=== PATIENT | female | born 1935 | race Caucasian/White ===

== ENCOUNTER → 2016-08-11 | Outpatient (CLI) | payer OTHER | LOC: FIMAGING 11:19 | DX: Z12.31 Encounter for screening mammogram for malignant neoplasm of breast (principal) | CPT/HCPCS: G0202 ==

== ENCOUNTER → 2016-11-30 | Outpatient (CLI) | payer OTHER | LOC: FIMAGING 07:59 | PROVIDERS: ATTEND Internal Medicine | DX: K82.4 Cholesterolosis of gallbladder (principal) ==

== ENCOUNTER 2017-03-11 17:17 | Emergency (ER) | payer OTHER ==
--- NOTE | 2017-03-11 17:25 | EDPHY ---
HPI/HX/ROS/PE/MDM Narrative: CHIEF COMPLAINT: Headache, nausea, dizziness HPI: The patient is an 80 y/o female arriving via EMS complaining of headache, nausea, and dizziness. She fell two weeks ago and has been experiencing pain in her wrist since. She has no memory of the fall but remembers waking up on the ground. Today she began experiencing a headache. She took Advil but experienced no relief. She has associated dizziness and nausea. An EKG en route was normal. She denies any other associated symptoms. She does not take anticoagulants. REVIEW OF SYSTEMS: Aside from elements discussed in the HPI, a comprehensive 10-point review of systems was reviewed and is negative. PMH: TIA SOCIAL HISTORY: Lives in [place], retired, daughter lives nearby. PHYSICAL EXAM: General:Patient is alert, in no acute distress. ENT:Eyes are normal to inspection. ENT inspection normal. Neck: Normal inspection. Full range of motion. Respiratory:No respiratory distress. Breath sounds normal bilaterally. Cardiovascular: Regular rate and rhythm. Normal cap refill. Abdomen:The abdomen is nontender to palpation. There are no peritoneal signs. There are normal bowel sounds. Back: Normal to inspection. No tenderness to palpation. Skin: Normal color. No rash. Warm and dry. Extremities: Normal appearance. Full range of motion. Brace on right wrist. Neuro: Oriented x3. Normal motor function. Normal sensory function. ED Course: Study: CT of the head Indication: Recent fall, headache, dizziness Results: CT scan of the head was obtained. The results of the study are: normal The study was read by the radiologist, Dr. Montemayor. I viewed the images myself on the PACS system. Study: X-ray of the wrist Indication: wrist pain Results: X-ray of the wrist was obtained. The results of the study are: ulnar styloid fracture The study was read by the radiologist, Dr. Montemayor. I viewed the images myself on the PACS system. I reassessed the patient and discussed the results of her work-up. I have splinted her wrist and advised her to follow-up with her orthopedist. Return precautions given. MDM: This patient complains of a headache in setting of fall that occurred two weeks ago. Her CTH and CTc-spine are negative for bleed or acute trauma. Her wrist x- ray indicates an ulnar styloid fracture - we have placed her in a velcro splint. The etiology of her headache is unclear, but she appears quite well on exam without any neuro deficits. Together with negative CTH, I think the patient is safe for discharge home and PCP f/u. - Data Points Imaging Results: Imaging Impressions Wrist X-Ray 03/11/17 17:22 Impression: 1. Nondisplaced ulnar styloid fracture. 2. Additional findings as above. Imaging: Discussed imaging studies w/ probation agent Radiologist, I viewed and interpreted images myself Laboratory Results: Laboratory Results 03/11/17 17:17 03/11/17 17:17 03/11/17 03/11/17 17:17 17:17 WBC 7.09 10^3/uL 10^3/uL (3.80-9.50) RBC 4.13 10^6/uL L 10^6/uL (4.18-5.33) Hgb 13.9 g/dL g/dL (12.6-16.3) Hct 39.9 % % (38.0-47.0) MCV 96.6 fL fL (81.5-99.8) MCH 33.7 pg pg (27.9-34.1) MCHC 34.8 g/dL g/dL (32.4-36.7) RDW 13.7 % % (11.5-15.2) Plt Count 313 10^3/uL 10^3/uL (150-400) MPV 10.8 fL fL (8.7-11.7) Neut % (Auto) 72.4 % % (39.3-74.2) Lymph % (Auto) 14.7 % L % (15.0-45.0) [place] % (Auto) 10.3 % % (4.5-13.0) Eos % (Auto) 1.3 % % (0.6-7.6) Baso % (Auto) 1.0 % % (0.3-1.7) Nucleat RBC Rel Count 0.0 % % (0.0-0.2) Absolute Neuts (auto) 5.14 10^3/uL 10^3/uL (1.70-6.50) Absolute Lymphs (auto) 1.04 10^3/uL 10^3/uL (1.00-3.00) Absolute Monos (auto) 0.73 10^3/uL 10^3/uL (0.30-0.80) Absolute Eos (auto) 0.09 10^3/uL 10^3/uL (0.03-0.40) Absolute Basos (auto) 0.07 10^3/uL 10^3/uL (0.02-0.10) Absolute Nucleated RBC 0.00 10^3/uL 10^3/uL (0-0.01) Immature Gran % 0.3 % % (0.0-1.1) Immature Gran # 0.02 10^3/uL 10^3/uL (0.00-0.10) Sodium 133 mEq/L L mEq/L (134-144) Potassium 5.4 mEq/L H mEq/L (3.5-5.2) Chloride 97 mEq/L mEq/L (97-110) Carbon Dioxide 28 mEq/l mEq/l (22-31) Anion Gap 8 mEq/L mEq/L (8-16) BUN 9 mg/dL mg/dL (7-23) Creatinine 0.6 mg/dL mg/dL (0.6-1.0) Estimated GFR > 60 Glucose 100 mg/dL mg/dL (70-100) Calcium 9.2 mg/dL mg/dL (8.5-10.4) Troponin I < 0.012 ng/mL ng/mL (0.000-0.034) Medications Given: Discontinued Medications Ketorolac Tromethamine (Toradol) 15 mg IVP EDNOW ONE Stop: 03/11/17 18:17 Last Admin: 03/11/17 18:19 Dose: 15 mg Ondansetron HCl (Zofran) 4 mg IVP EDNOW ONE Stop: 03/11/17 18:12 Last Admin: 03/11/17 18:19 Dose: 4 mg General Time Seen by Provider: 03/11/17 17:18 Initial Vital Signs: Initial Vital Signs Temperature (C) 36.8 C 03/11/17 17:36 Heart Rate 68 03/11/17 17:36 Respiratory Rate 16 03/11/17 17:36 Blood Pressure 152/90 H 03/11/17 17:36 O2 Sat (%) 91 L 03/11/17 17:36 O2 Delivery Mode Room Air O2 (L/minute) 2 Allergies/Adverse Reactions: fentanyl Allergy (Severe, Verified 03/11/17 17:38) Loss of consciousness promethazine Allergy (Severe, Verified 03/11/17 17:38) Loss of consciousness Sulfa (Sulfonamide Antibiotics) Allergy (Severe, Verified 03/11/17 17:38) Hives Penicillins Allergy (Unknown, Verified 03/11/17 17:38) Hives Home Medications: Medication Instructions Recorded Ergocalciferol [Vitamin D2 (*)] 50,000 unit PO Q14D 02/09/15 Herbals/Supplements -Info Only 1 ea PO DAILY 02/09/15 Multivitamins [Multivitamin (*)] 1 each PO DAILY 02/09/15 [place]-3 Fatty Acids [Fish Oil 1000 1,000 mg PO DAILY 02/16/15 mg (*)] Acetaminophen [Tylenol 325mg (*)] 325 mg PO Q6 PRN 01/06/16 Estradiol [Estradiol 1 MG (*)] 1 mg PO MWF 01/06/16 Hydrocodone/APAP 5/325 [[place] 1 - 2 tab PO Q4HRS PRN #20 tab 02/18/16 5/325 (*)] Departure - Departure Disposition: Home, Routine, Self-Care Clinical Impression: Fracture of ulnar styloid Qualifiers: Encounter type: initial encounter Fracture type: closed Fracture alignment: nondisplaced Laterality: left Qualified Code(s): S52.615A - Nondisplaced fracture of left ulna styloid process, initial encounter for closed fracture Condition: Good Instructions: Arm Fracture in Adults (ED) Additional Instructions: 1. Wear splint as advised. 2. Follow-up with Dr. Denis if 3-5 days. 3. Return to the ED for worsening of condition. Referrals: Patient,NotPresent [Unknown] - As per Instructions Palmer Denis MD [Medical Doctor] - As per Instructions Report Scribed for: Vitaliy Cavazos Report Scribed by: Sol Castillo Date of Report: 03/11/17 Time of Report: 17:28 Physician Review and Approval Statement: Portions of this note were transcribed by an ED scribe. I personally performed the history, physical exam, and medical decision making; and confirm the accuracy of the information in the transcribed note.
[2017-03-11 17:33] LABS: PLATELET COUNT 313 10^3/uL (150-400)
[2017-03-11] MEDS ORDERED: ONDANSETRON 4 MG/2 ML VIAL IVP ONE (18:11)
[2017-03-11] MEDS ORDERED: KETOROLAC 30 MG/1 ML SDV IVP ONE (18:16)
[2017-03-11] MEDS ORDERED: KETOROLAC 15 MG/1 ML SDV ONE (18:16)
[2017-03-11 18:28] VITALS: BP 138/84; TEMP 98.4
[2017-03-11 18:49] VITALS: PULSE 74; RESP 18; O2SAT 92
== END 2017-03-11 19:09 | disposition home or self-care (01) ==
LOC: EDBD → EDUNIT#
DX: S52.615A Nondisplaced fracture of left ulna styloid process, initial encounter for closed fracture (principal); W18.39XA Other fall on same level, initial encounter
CPT/HCPCS: 70450; 73110; 96374; 96375; 99285; J1885; J2405

== ENCOUNTER 2017-03-20 17:29 | Inpatient (IN) | payer OTHER ==
--- NOTE | 2017-03-20 17:26 | EDPHY ---
H & P HPI/ROS: CHIEF COMPLAINT: Stroke alert HISTORY OF PRESENT ILLNESS: The patient is an 81 y/o female arriving via EMS on a stroke alert after developing acute alteration in her mental status. Patient herself is unable to give me any history. Per EMS, the patient went to a physical therapy today and was noted to be acting normally at 16:30 (1.25 hrs ago) when she arrive for her appointment. 10 minutes later the physical therapist came in and the patient was perseverating and had an altered mental status. She was unable to provide any history to the EMS. She is stating over and over "I need to get my reservation "and "I need reservations ". Her speech appears to be fluid but nonsensical. She is not following commands. EMS did not note any obvious motor difficulties and she was able to walk to the [facility]. She has been confused, and combative EN route. She was here two weeks ago for wrist pain after a fall that she did not remember. Blood glucose was 84 in the field. REVIEW OF SYSTEMS: Review of systems is unobtainable from this patient because of altered mentation. PAST MEDICAL HISTORY: TIA SOCIAL HISTORY: Lives in [place], retired, Prior medical records reviewed including ED visit with Dr. Cavazos on 03/11/17 VITAL SIGNS: BP: 182/90 in the field GENERAL: Well-developed, well-nourished. Combative, somewhat uncooperative. Not following simple commands. No trauma noted. HEENT: Slight down turn of the left corner of the mouth. Otherwise no asymmetry noted. Will not cooperate with oropharynx exam. No trauma. Heart: Regular rate and rhythm. No rubs murmurs or gallops. Lungs: Clear to auscultation. Abdomen: Benign. EXTREMITIES: No trauma. No edema. Range of motion is normal throughout. NEURO: Will not cooperate with exam. Tells me her name but is not oriented to place or time. Not able to follow simple commands. Combative. No obvious neglect noted. Moving all extremities x4. SKIN: Warm and dry, no rash. PSYCHIATRIC: Perseverative, agitated Portions of this note were transcribed by a medical sales specialist. I personally performed a history, physical exam, medical decision making, and confirmed accuracy of information the transcribed note. Constitutional: Initial Vital Signs Temperature (C) 36.8 C 03/20/17 17:29 Heart Rate 67 03/20/17 17:29 Respiratory Rate 16 03/20/17 17:29 Blood Pressure 164/93 H 03/20/17 17:29 O2 Sat (%) 98 03/20/17 17:29 O2 Delivery Mode Nasal Cannula O2 (L/minute) 1 Allergies/Adverse Reactions: fentanyl Allergy (Severe, Verified 03/11/17 17:38) Loss of consciousness promethazine Allergy (Severe, Verified 03/11/17 17:38) Loss of consciousness Sulfa (Sulfonamide Antibiotics) Allergy (Severe, Verified 03/11/17 17:38) Hives Penicillins Allergy (Unknown, Verified 03/11/17 17:38) Hives Home Medications: Medication Instructions Recorded Herbals/Supplements -Info Only 1 ea PO DAILY 02/09/15 Multivitamins [Multivitamin (*)] 1 each PO DAILY 02/09/15 [place]-3 Fatty Acids [Fish Oil 1000 1,000 mg PO DAILY 02/16/15 mg (*)] Acetaminophen [Tylenol 325mg (*)] 325 mg PO Q6 PRN 16 Medical Decision Making - Diagnostics EKG Interpretation: 12-LEAD EKG: Please see the full report in [employer] [facility]. My interpretation: Normal sinus rhythm with a rate of 72 Imaging Results: Imaging Impressions Head CT 03/20/17 17:32 Impression: Elderly brain with atrophy and presumed white matter small vessel disease. Nothing acute is identified. Results called and discussed with Iqra Connell MD on 03/20/2017 at 17:52 Chest X-Ray 03/20/17 17:43 Impression: The chest is negative for acute abnormality. Head CTA 03/20/17 18:09 Impression: 1. Negative CT angiography of the neck with no arterial occlusive disease identified. 2. Suspect multinodular goiter, which could be further evaluated with thyroid ultrasound as clinically directed. CT Angiography of the Head With Attention to the [place] Reason for examination: R29.818 Neurological changes strongly suggesting intracerebral aneurysm. Technique: A spiral acquisition was performed from the base of the brain to the vertex during rapid intravenous administration of 90 mL of Isovue-370. This contrast volume was utilized for evaluation of the neck and head. Axial images were obtained at 0.6-mm thickness and the examination was reviewed on the workstation in multiple window and level settings. Sagittal and coronal reformats were performed and three-dimensional reformations are performed by the radiologist on the workstation. Dose reduction techniques were utilized. Findings: There is excellent arterial opacification. The great vessels at the base of the brain are normal in appearance. The anterior and middle cerebral arteries appear normal. The [place] is intact with both anterior and posterior communicating arteries identified. The basilar artery as well as posterior cerebral arteries are normal. No regions of stenosis are identified. No hemorrhages are seen and no vascular malformations are identified. No areas of abnormal perfusion are identified and there are no findings to suggest cortical ischemia. Impression: Normal CT angiography of the head with attention to the great vessels of the [place]. Results called and discussed with Dr. Iqra Connell on March 20, 2017 at 1943 hours. Note: All stenoses are calculated using NASCET Criteria. Neck CTA 03/20/17 18:09 Impression: 1. Negative CT angiography of the neck with no arterial occlusive disease identified. 2. Suspect multinodular goiter, which could be further evaluated with thyroid ultrasound as clinically directed. CT Angiography of the Head With Attention to the [place] Reason for examination: R29.818 Neurological changes strongly suggesting intracerebral aneurysm. Technique: A spiral acquisition was performed from the base of the brain to the vertex during rapid intravenous administration of 90 mL of Isovue-370. This contrast volume was utilized for evaluation of the neck and head. Axial images were obtained at 0.6-mm thickness and the examination was reviewed on the workstation in multiple window and level settings. Sagittal and coronal reformats were performed and three-dimensional reformations are performed by the radiologist on the workstation. Dose reduction techniques were utilized. Findings: There is excellent arterial opacification. The great vessels at the base of the brain are normal in appearance. The anterior and middle cerebral arteries appear normal. The [place] is intact with both anterior and posterior communicating arteries identified. The basilar artery as well as posterior cerebral arteries are normal. No regions of stenosis are identified. No hemorrhages are seen and no vascular malformations are identified. No areas of abnormal perfusion are identified and there are no findings to suggest cortical ischemia. Impression: Normal CT angiography of the head with attention to the great vessels of the [place]. Results called and discussed with Dr. Iqra Connell on March 20, 2017 at 1943 hours. Note: All stenoses are calculated using NASCET Criteria. Imaging: Discussed imaging studies w/ museum specialist Radiologist, I viewed and interpreted images myself ED Course/Re-evaluation: The patient is an 81 y/o female arriving via EMS on a stroke alert for altered mental status was speech difficulties. She is currently perseverative and agitated. On a limited exam she has a left-sided facial droop and possible diminished senior power scheduler strength on the left. Patient proceeded immediately to CT scan. [facility] contacted and initial history provided. On return from CT scan: 1744: Reassessed patient, she is still confused, agitated, uncooperative. Restraints were placed. Patient had IV placed and received Ativan. She is continuously asking about "making a reservation" and "wanting her doctor". Speech is largely fluid but on longer sentences she will occasionally misspeak/ miss pronounce/create a word. Motor strength does appear to be intact throughout. 1750: Dr. Skinner from [facility] evaluated the patient via the stroke robot. She does do quite well identifying objects, speaking short words, but again has difficulty with longer sentences and occasionally miss names in object. She does not appear to be cognizant of the fact that she is now in the emergency department, and had an acute alteration in her mental status. 175: Spoke with radiologist he reports the head CT shows brain atrophy and white small vessel disease. Ther are no acute findings. 1800: Patients physical therapist is here. He notes the patient had a hard time speaking and finding words. During previous visits she had been articulate. 180: Dr. Reed recommends tPA. He notes that the patient is having difficulty speaking, primarily when it comes to reading more difficult sentences. He also discussed the risks and benefits of TPA with the patient's daughter. Patient's daughter consented to tPA administration.. 1833: TPA administered. 1904: EKG interpreted as sinus rhythm. 1942: Spoke with radiologist, he reports the patient's CTA's are negative. 1953: Spoke with hospitalist service, Dr. Cain accepts admission of this patient. 1954: Reassessed patient, she is better and resting after TPA. She is now calm , relatively cooperative, but still not able to provide a history. Speech remains fluid with rare mistaken word. She is still having left-sided facial droop. Denies headache or paresthesias in extremities. I have also discussed the plan for admission; patient and her daughter are comfortable with this plan. Differential Diagnosis: Differential diagnoses the patient's presenting complaints was considered including but not limited to intracranial injury, TIA, ischemic cerebrovascular accident, hemorrhagic cerebrovascular accident, hypoglycemia, complex migraine , seizure, metastases, tumor, seizure, or electrolyte abnormality. Consult/Admit Bed Type: Dr. Heath Cain, ICU Critical Care Time: Critical care time spent by me, Dr. Connell exclusively with this patient was 50 minutes, exclusive of PA time and exclusive of procedures. The organ system at risk was neurologic and I obtained imaging studies, contacted [facility], administered tPA at [facility]'s recommendation, admitted to the hospital, to prevent worsening of the patients condition. - Data Points Laboratory Results: Laboratory Results 03/20/17 17:55 03/20/17 17:55 03/20/17 03/20/17 03/20/17 17:55 17:55 17:55 WBC 7.81 10^3/uL 10^3/uL (3.80-9.50) RBC 4.35 10^6/uL 10^6/uL (4.18-5.33) Hgb 14.6 g/dL g/dL (12.6-16.3) POC Hgb Hct 41.7 % % (38.0-47.0) POC Hct MCV 95.9 fL fL (81.5-99.8) MCH 33.6 pg pg (27.9-34.1) MCHC 35.0 g/dL g/dL (32.4-36.7) RDW 13.6 % % (11.5-15.2) Plt Count 376 10^3/uL 10^3/uL (150-400) MPV 10.6 fL fL (8.7-11.7) Neut % (Auto) 67.6 % % (39.3-74.2) Lymph % (Auto) 19.3 % % (15.0-45.0) [place] % (Auto) 10.5 % % (4.5-13.0) Eos % (Auto) 1.3 % % (0.6-7.6) Baso % (Auto) 1.0 % % (0.3-1.7) Nucleat RBC Rel Count 0.0 % % (0.0-0.2) Absolute Neuts (auto) 5.28 10^3/uL 10^3/uL (1.70-6.50) Absolute Lymphs (auto) 1.51 10^3/uL 10^3/uL (1.00-3.00) Absolute Monos (auto) 0.82 10^3/uL H 10^3/uL (0.30-0.80) Absolute Eos (auto) 0.10 10^3/uL 10^3/uL (0.03-0.40) Absolute Basos (auto) 0.08 10^3/uL 10^3/uL (0.02-0.10) Absolute Nucleated RBC 0.00 10^3/uL 10^3/uL (0-0.01) Immature Gran % 0.3 % % (0.0-1.1) Immature Gran # 0.02 10^3/uL 10^3/uL (0.00-0.10) PT 13.3 SEC SEC (12.0-15.0) INR 1.02 (0.83-1.16) POC Sodium Sodium 130 mEq/L L mEq/L (134-144) POC Potassium Potassium 4.3 mEq/L mEq/L (3.5-5.2) POC Chloride Chloride 94 mEq/L L mEq/L (97-110) Carbon Dioxide 26 mEq/l mEq/l (22-31) Anion Gap 10 mEq/L mEq/L (8-16) POC BUN BUN 8 mg/dL mg/dL (7-23) Creatinine 0.5 mg/dL L mg/dL (0.6-1.0) POC Creatinine Estimated GFR > 60 Glucose 85 mg/dL mg/dL (70-100) POC Glucose Calcium 9.0 mg/dL mg/dL (8.5-10.4) Troponin I < 0.012 ng/mL ng/mL (0.000-0.034) 03/20/17 17:48 WBC RBC Hgb POC Hgb 15.3 gm/dL gm/dL (12.6-16.3) Hct POC Hct 45 % % (38-47) MCV MCH MCHC RDW Plt Count MPV Neut % (Auto) Lymph % (Auto) [place] % (Auto) Eos % (Auto) Baso % (Auto) Nucleat RBC Rel Count Absolute Neuts (auto) Absolute Lymphs (auto) Absolute Monos (auto) Absolute Eos (auto) Absolute Basos (auto) Absolute Nucleated RBC Immature Gran % Immature Gran # PT INR POC Sodium 134 mEq/L mEq/L (134-144) Sodium POC Potassium 3.8 mEq/L mEq/L (3.3-5.0) Potassium POC Chloride 96 mEq/L L mEq/L (97-110) Chloride Carbon Dioxide Anion Gap POC BUN 7 mg/dL mg/dL (7-23) BUN Creatinine POC Creatinine 0.6 mg/dL mg/dL (0.6-1.0) Estimated GFR Glucose POC Glucose 94 mg/dL mg/dL (70-100) Calcium Troponin I Medications Given: Discontinued Medications Alteplase, Recombinant (Activase) 5.067 mg 0.09 mg/kg (5.067 mg) IV ONCE ONE PRN Reason: Protocol Stop: 03/20/17 18:33 Last Admin: 03/20/17 18:27 Dose: 5.067 mg Alteplase, Recombinant (Activase) 45.603 mg 0.81 mg/kg (45.603 mg) IV ONCE ONE PRN Reason: Protocol Stop: 03/20/17 18:33 Last Admin: 03/20/17 19:21 Dose: 45.603 mg Sodium Chloride (Ns) 50 mls @ 0 mls/hr IV EDNOW ONE PRN Reason: Per Protocol Stop: 03/20/17 18:33 Last Admin: 03/20/17 19:22 Dose: 50 mls Lorazepam (Ativan Injection) 2 mg IVP EDNOW ONE Stop: 03/20/17 18:23 Last Admin: 03/20/17 18:22 Dose: 2 mg Point of Care Test Results: 03/20/17 17:48 POC Sodium 134 POC Potassium 3.8 POC Chloride 96 L POC BUN 7 POC Creatinine 0.6 POC Glucose 94 Departure - Departure Disposition: [facility] Clinical Impression: Acute ischemic stroke, Difficulty with speech Altered mental status Qualifiers: Altered mental status type: unspecified Qualified Code(s): R41.82 - Altered mental status, unspecified Condition: Serious Report Scribed for: Iqra Connell Report Scribed by: Lucy Gomes Date of Report: 03/20/17 Time of Report: 17:26
[2017-03-20] MEDS ORDERED: LORazepam 2 MG/ML INJ ONE (17:34)
[2017-03-20] MEDS ORDERED: ALTEPLASE 100 MG/100 ML VIAL IV ONE ×2 (18:09→18:32)
[2017-03-20] MEDS ORDERED: IOPAMIDOL (ISOVUE 370) 100 ML BTL IV ONE (18:14)
--- NOTE | 2017-03-20 18:14 | PDCONSULT ---
Assistant Boys Track Coach Note: [facility] Tele[facility] Note Demographics Consult Type Acute Stroke, . First Name Richa Last Name Khadra Date of 1935 Age: 81 Gender Female Referring Provider Dr Iqra Connell Time of initial page (): 03/20/2017 17:32 Time of return call (): 03/20/2017 17:32 Time Ready to Initiate Telemed Consult (): 03/20/2017 17:33 HPI 81yo woman who was at PT appointment for hip pain. She then was found to be perseverative and left facial weakness and left arm weakness. Blood sugar was normal. She was last known to be normal at 4:30 when at Physical therapy appointment, her therapist came to the ED and was able to give his account of her worsening in front of him. Exam Vitals: vital signs reviewed Mental Status: awake, alert + oriented x 3, follows commands Language: normal speech, no dysarthria, receptive aphasia Cranial Nerves extra ocular movements intact, no facial droop, normal facial sensation Motor: normal strength, normal bulk, no drift Sensory: normal sensation Cerebellar: normal cerebellar NIHSS Time (): 03/20/2017 18:06 LOC 1a: 0 = Alert; keenly responsive LOC 1b: 2 = Answers neither questions correctly LOC Commands: 1 = Performs one task correctly Best Gaze: 0 = Normal Visual: 0 = No visual loss Facial Palsy 0 = Normal symmetrical movements Motor Arm L: 0 = No drift; limb holds 90 (or 45) degrees for full 10 seconds Motor Arm R: 0 = No drift; limb holds 90 (or 45) degrees for full 10 seconds Motor Leg L: 0 = No drift; leg holds 30-degree position for full 5 seconds Motor Leg R: 0 = No drift; leg holds 30-degree position for full 5 seconds Limb Ataxia 0 = Absent Sensory: 0 = Normal; no sensory loss Best Language: 1 = [id number] aphasia; some obvious loss of fluency or facility of comprehension Dysarthria: 0 = Normal Extinction + Inattention: 0 = No abnormality NIHSS: [address]: no bleed Assessment: Acute Ischemic Stroke, Aphasia, 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 She is agitated due to staff "doing things" to her. Plan Lytic/Intervention: IV tPA Labs HgbA1c, Lipid Panel Imaging CTA Head and Neck STAT, Please call me back with results STALIN if there are signs of occlusion or dissection Diagnostic test echocardiogram with bubble Therapy/Eval NPO until cleared by swallow evaluation, PT/OT, Speech/Swallow therapy consult VTE Prophylaxis SCD tPA Administration Recommendations: I have reviewed the risks/benefits of tPA with family &/or patient. They understand that there is a potential of life threatening hemorrhagic complication from tPA, but feel that benefits outweigh risks and want to proceed with administration of tPA, BP goal< 180/100 for 24hrs post tPA administration, Use Labetolol 10-20mg IV prn or Nicardipine gtt to maintain BP parameters, No antiplatelets or anticoagulants for next 24 hrs unless indicated for emergent IA procedure or other life threatening situation, ICU admission, Call back if there is any decline in neurological condition Other telemetry monitoring, I have discussed my recommendations with the referring provider Disposition transfer to ICU
[2017-03-20 18:15] LABS: % IMMATURE GRANULYOCYTES 0.3 % (0.0-1.1); ABSOLUTE IMMATURE GRANULOCYTES 0.02 10^3/uL (0.00-0.10); ADD DIFF? NO; ADD MORPH? NO; ADD SCAN? NO; ATYPICAL LYMPHOCYTE FLAG 0 (0-99); FRAGMENT RBC FLAG 0 (0-99); HEMATOCRIT 41.7 % (38.0-47.0); HEMOGLOBIN 14.6 g/dL (12.6-16.3); LEFT SHIFT FLG 0 (0-99); LIPEMIA HEMOLYSIS FLAG 90 (0-99); MEAN CELL HEMOGLOBIN 33.6 pg (27.9-34.1); MEAN CELL VOLUME 95.9 fL (81.5-99.8); MEAN PLATELET VOLUME 10.6 fL (8.7-11.7); PLATELET CLUMPS FLAG 0 (0-99); PLATELET COUNT 376 10^3/uL (150-400); RED BLOOD CELL COUNT 4.35 10^6/uL (4.18-5.33); RED CELL DISTRIBUTION WIDTH 13.6 % (11.5-15.2)
[2017-03-20] MEDS ORDERED: LORazepam 2 MG/ML INJ IVP ONE (18:22)
[2017-03-20 18:25] LABS: INR 1.02 (0.83-1.16); PROTIME(PATIENT) 13.3 SEC (12.0-15.0)
[2017-03-20 18:26] LABS: ANION GAP 10 mEq/L (8-16); CARBON DIOXIDE 26 mEq/l (22-31); CHLORIDE 94 mEq/L (97-110); CREATININE 0.5 mg/dL (0.6-1.0); GLOMERULAR FILTRATION RATE > 60; GLUCOSE 85 mg/dL (70-100); POTASSIUM 4.3 mEq/L (3.5-5.2); SODIUM 130 mEq/L (134-144)
[2017-03-20] MEDS ORDERED: NS 50 ML BAG IV ONE (18:27)
[2017-03-20] MEDS ORDERED: ALTEPLASE 1 MG/ML SYR IV ONE (18:32)
[2017-03-20] MEDS ORDERED: NS 50 ML IV ONE (18:32)
[2017-03-20 18:38] LABS: TROPONIN I < 0.012 ng/mL (0.000-0.034)
--- NOTE | 2017-03-20 19:08 | CPEKG ---
Heart Rate: 72 RR Interval: 833 P-R Interval: 156 QRSD Interval: 80 QT Interval: 436 QTC Interval: 478 P [place]: 63 QRS [place]: 17 T Wave [place]: 25 EKG Severity - NORMAL ECG - EKG Impression: SINUS RHYTHM Electronically Signed By: Iqra Connell 20-Mar-2017 23:15:02
[2017-03-20] MEDS ORDERED: LABETALOL HCL 5 MG/ML 20 ML MDV IVP PRN (20:57)
[2017-03-20] MEDS ORDERED: ONDANSETRON 4 MG/2 ML VIAL IVP PRN (21:01)
[2017-03-20] MEDS ORDERED: ONDANSETRON DISINTEGRATING 4 MG TAB PO PRN (21:01)
--- NOTE | 2017-03-20 21:38 | GHP ---
[f rep st] HISTORY AND PHYSICAL DATE OF ADMISSION: 03/20/2017 HISTORY OF PRESENT ILLNESS: The patient is a pleasant 81-year-old female with minimal past medical h istory, was referred to the emergency department from physical therapist with word-finding difficulti es. It sounds like the patient presented to physical therapy and was feeling well, then subsequently developed mental status changes with perseveration and difficulty speaking. She was found to be agg ressive in the EMS. When I speak with the patient, she had been in the ER for a couple hours. She h ad received tPA for an assumed ischemic stroke with aphasia. The patient is complaining of pain in h er right arm where she is bleeding, for which she has a bruise. Her speech is fluent. She denies he adache, chest pain. She is somnolent but easily arousable. Her daughter is at the bedside and we re viewed the case. She was last noted to be normal at 4:30 and was in the ER by 5:30. The physical therapist also came to the emergency department and was able to give an account of her acute worsening in front of him. REVIEW OF SYSTEMS: Complete 10-point review of systems conducted and negative except as noted in the HPI. ALLERGIES: Fentanyl, sulfa, promethazine and penicillins. HOME MEDICATIONS: Multivitamin, fish oil, Tylenol. PAST MEDICAL HISTORY: TIA years ago. SOCIAL HISTORY: Lives in [place]. She is retired. She is . Minimal alcohol. No tobacco. FAMILY HISTORY: Parents . PHYSICAL EXAMINATION: PRESENTING VITALS: Temp 36.7, blood pressure 161/99, pulse 68, breathing 16 t imes a minute, 94% on 2 L. Blood pressure now 161/90. GENERAL: No acute distress. HEENT: Sclerae anicteric. Oropharynx clear. Mucous membranes are moist. NECK: Supple without lymphadenopathy or JVD. LUNGS: Clear to auscultation bilaterally. HEART: S1, S2. ABDOMEN: Soft, nontender, nondis tended. LOWER EXTREMITIES: Without edema. Calves are nontender. SKIN: Without rash. NEUROLOGIC: Reveals fluent speech which is pretty normal. Although I am speaking with her after her exam. She does not have a facial droop. There may have been some decreased left trauma registrar strength. She is able t o move her toes and sensation is intact bilaterally. LABS: INR is 1. White count 7.8, hematocrit 42, platelets are 376,000. Sodium 130, potassium 4.3, chloride 94, bicarb 26, BUN 8, creatinine 0.5, glucose 85, calcium is 9. Troponin is less than 0.012 . Tox screen is negative. EKG interpreted by me shows sinus at 72 with normal axis and intervals. There is some T-wave inversions in V2, V3 but otherwise no ST or T-wave changes. Initial head CT cristina ws elderly brain with atrophy and presumed white matter small vessel disease. No acute findings. He ad and neck CTA show no occlusions and normal vessels. Chest x-ray, interpreted by me, shows no acut e cardiopulmonary disease. I discussed case with Iqra Connell. ASSESSMENT AND PLAN: This is an 81-year-old female, who presents with left facial droop, left weakne ss and word-finding difficulties, now status post tPA. 1. Status post tPA. Keep her blood pressure under 180/100, which has been thus far. She will be on bed rest, n.p.o. Hold antiplatelets and anticoagulants for at least 48 hours. 2. Stroke. Other than age she does not appear to have any risk factors. She is hypertensive on pre sentation. We will perform an echocardiogram, telemetry, lipid panel. We will not perform hypercoag ulable workup. 3. Multinodular goiter. Her neck CTA comments that she has a suspected multinodular goiter which co uld be further evaluated with ultrasound. I have not ordered that test now this could be done perhap s as an outpatient or at least when she is more stable clinically. 4. Hyponatremia. This is mild. She has baseline hyponatremia. She was 133, 9 days ago and has had values in the low 130s going back as far as 4 years. She has also had normal values as well. No fu rther workup. 5. Hypertension. She may have underlying hypertension. It is difficult to tell in this acute setti ng. We will follow. Management of this as above. 6. Prophylaxis. SCDs for now. DISPOSITION: 40 minutes spent on critical care time. /[id number]/MODL
[2017-03-21] MEDS: NS 1,000 ML IV SCH ×2 (00:28→09:43)
[2017-03-21 05:38] LABS: ANION GAP 4 mEq/L (8-16); CALCIUM 8.6 mg/dL (8.5-10.4); CARBON DIOXIDE 26 mEq/l (22-31); CHLORIDE 105 mEq/L (97-110); CHOLESTEROL 143 mg/dL (140-220); CHOLESTEROL/HDL RATIO 1.39 RATIO (1.00-4.44); CREATININE 0.5 mg/dL (0.6-1.0); GLOMERULAR FILTRATION RATE > 60; GLUCOSE 80 mg/dL (70-100); HIGH DENSITY LIPOPROTEIN 103 mg/dL (40-85); LDL/HDL RATIO 0.29 RATIO (1.00-3.22); LOW DENSITY LIPOPROTEIN 30 mg/dL (80-100); NON-HIGH DENSITY LIPOPROTEIN 40 mg/dL (90-129); POTASSIUM 4.4 mEq/L (3.5-5.2); SODIUM 135 mEq/L (134-144); TRIGLYCERIDE 50 mg/dL (35-135); VERY LOW DENSITY LIPOPROTEINS 10 mg/dL (8-25)
[2017-03-21] MEDS: ACETAMINOPHEN 325 MG TAB PO PRN (07:52)
[2017-03-21] MEDS: OMEGA-3 FATTY ACIDS 1,000 MG CAP PO SCH (08:01)
--- NOTE | 2017-03-21 08:56 | ASMTCMCOM ---
CM Note CM Note Notes: 81 year old female admitted for AMS and aphasia. Tx TPA found to also have a multinodular goiter. Therapies to eval. May not have discharge needs. CM to follow Date Signed: 03/21/2017 08:56 AM Electronically Signed By:Louann Kramer LCSW
[2017-03-21] MEDS ORDERED: Herbals/Supplements -Info Only PO SCH (09:00)
[2017-03-21] MEDS: MULTIVITAMINS 1 EACH TAB PO SCH (10:25)
--- NOTE | 2017-03-21 10:50 | ECHO ---
[email or web address] [address] [address] Main: [phone] Fax: Transthoracic Echocardiogram Name: GERALDINE GARRISON MR#: [id number] Study Date: 03/21/2017 Study Time: 08:47 AM Date of : 1935 Age: 81 year(s) Height: 165.1 cm (65 in.) Weight: 56.25 kg (124 lb.) BSA: 1.61 m2 Gender: Female Examination: Echo Indication: Ischemic stroke Image Quality: Contrast: Requested by: Heath Cain BP: 133 mmHg/63 mmHg Heart Rate: Rhythm: Indication: Ischemic stroke Procedure Staff Fixed Route Operator: Estrella Gilbert Reading Physician: Gus Banks Requesting Provider: Conclusions: Normal global systolic LV function. EF is 74 %. Mild mitral valve regurgitation is present. Moderate aortic cusp calcification is present. Mild aortic valve regurgitation is present. Measurements: Chambers Valvular Assessment AV/MV Valvular Assessment TV/PV Normal Normal Normal Name Value Range Name Value Range Name Value Range Ao Gretta (MM): 3.2 cm (2.2 cm-3.7 AV meanP mmHg ( - ) TR Vmax: 2.67 mm/s ( - ) cm) AR (PHT): 668 ms ( - ) TR PGmax: 29 mmHg ( - ) IVSd (2D): 0.8 cm (0.6 cm-1.1 MV E Vmax: 0.64 m/s ( - ) syst. PAP: 34 mmHg ( - ) cm) MV A Vmax: 0.92 m/s ( - ) LVDd (2D): 4.7 cm (3.9 cm-5.3 MV E/A: 0.70 ( - ) cm) LVDs (2D): 2.6 cm (2.1 cm-4 cm) LVPWd (2D): 0.7 cm ( - ) LVEF (2D): 74 (>=54 %) Continued Measurements: Chambers Valvular Assessment AV/MV Valvular Assessment TV/PV Name Value Name Value Name Value LADs: 2.6 cm MV E' Septal: 0.06 m/s CVP (est.): 5 mmHg MV E/E' Septal: 10.00 MV E/E' Lateral: 11.80 AR Vmax: 3.47 cm/s Patient: GERALDINE GARRISON Study Date: 03/21/2017 Page 1 of 2 08:47 AM Findings: Left Ventricle: Normal size left ventricle. No LV hypertrophy. Normal global systolic LV function. EF is 74 %. No regional wall motion abnormality. Right Ventricle: Normal size right ventricle. Left Atrium: The left atirum is borderline dilated. An agitated saline study was performed and was negative for intracardiac shunting. Right Atrium: The right atrium is normal in size. Mitral Valve: The mitral valve is normal in appearance and function. Mild mitral valve regurgitation is present. Aortic Valve: The aortic valve is tri-leaflet. Moderate aortic cusp calcification is present. Mild aortic valve regurgitation is present. AV max PG is 15mmHG. AV mean PG is 8mmHG.. Tricuspid Valve: The tricuspid valve is normal in appearance and function. Mild tricuspid regurgitation is present. Pulmonic Valve: The pulmonic valve is normal in appearance and function. Trivial pulmonic valve regurgitation. Aorta: The aorta is normal. Pericardium: No pericardial effusion. (No Signature Object) Patient: GERALDINE GARRISON Study Date: 03/21/2017 Page 2 of 2 08:47 AM [id number]
--- NOTE | 2017-03-21 10:51 | GCON ---
[f rep st] CONSULTATION SALES LEAD CONSULTATION REASON FOR ADMISSION: Acute stroke. HISTORY OF PRESENT ILLNESS: The patient is a very pleasant 81-year-old, white female, with a past me dical history including TIAs. She was brought to the emergency room after having word-finding diffic ulties and altered mental status. She was somewhat aggressive. It was felt that she was having an i schemic stroke, and she was given tPA. Her symptoms subsequently resolved. Currently, the patient i s awake and alert in the Intensive Care Unit, and she has been seen by Neurology. A repeat CT scan a nd MRI have been ordered. PAST MEDICAL HISTORY: Significant for TIAs. ALLERGIES: Fentanyl, sulfa, promethazine and penicillin. SOCIAL HISTORY: No history of tobacco use. Infrequent alcohol use. She is , retired, has go od family support. PHYSICAL EXAM: VITAL SIGNS: Blood pressure is 132/71, pulse 64, respirations 13, temperature 37.1, oxygen saturation 92% on room air. GENERAL: She is a well-developed, well-nourished, elderly white female who is resting comfortably in no acute distress. HEENT: Eyes, JAD. EOMI. Throat shows no erythema or tonsillar hypertrophy. NECK: Supple. No cervical adenopathy. HEART: Regular rate and rhythm without murmurs, rubs, gallops. LUNGS: Clear to auscultation. No wheeze or rhonchi. ABDOM EN: Soft, nontender. Bowel sounds are present in all 4 quadrants. EXTREMITIES: No clubbing, cyano sis or edema. LABORATORIES: White count 7.8, hemoglobin 15, hematocrit 41, platelet count is 376. Sodium 135, pot assium 4.4, chloride 105, CO2 26, BUN 6, creatinine 0.5, glucose is 80. Urine tox screen is negative. CT scan of the head shows no acute changes. IMPRESSION: 1. Acute, stroke status post tissue plasminogen activator. 2. History of transient ischemic attacks. RECOMMENDATIONS: 1. Adequate pain control. Continue bedrest for 24 hours post tPA, which will be approximately 6:00 p.m. this evening. 2. Agree with repeat CT scan and MRI. 3. PT and OT. 4. Speech to see. /[id number]/MODL
--- NOTE | 2017-03-21 10:51 | PDMN ---
Medical Necessity Medical necessity: Pt meets IP criteria per MD; est los >2 mn for eval/tx of AMS , aphasia, agitation, L sided weakness & htn r/t possible stroke s/p tPA; hx htn , multinodular goiter, hyponatremia & TIA; per H&P & order 03/21/17
--- NOTE | 2017-03-21 11:12 | NEUROPROG ---
Assessment: HOSPITAL NEUROLOGY CONSULT REQUESTING: Heath Cain MD REASON: stroke HPI: 81 year old right-handed woman presented to our facility yesterday as a stroke alert. She has a documented remote history of TIA, but she denies this. Patient has right hip arthropathy and was at a PT appointment yesterday. She arrived to her appointment at 1630, and 10 minutes into her appointment her therapist noted her to develop abrupt onset aphasia and left face/arm weakness. She was taken to our ED right away. Telestroke evaluated the patient and found her to have aphasia, with NIHSS 4 (lanaguage, questions, commands). CT head wo showed nothing acute, just atrophy and chronic microvascular ischemic changes. CTA head/neck showed no vascular occlusive lesions. IV rtPA was administered starting at 1827. Symptoms improved with the rest of the infusion. Today she feels back to baseline. ROS: As per the HPI, otherwise a complete 12 point ROS was performed and is negative ALLERGIES AND MEDS: As recorded in the EMR - reviewed and reconciled PFSH: As per the intake H&P by Dr. Cain from yesterday EXAM: VS reviewed in EMR GEN: WDWN laying in NAD HEENT: NCAT, sclera anicteric, conjunctiva not injected, MMM, oropharynx clear, no scalp tenderness NECK: supple, nontender, no meningismus CV: RRR s1 s2 wo m/r/c/g. Carotid pulses 2+ wo bruit NEURO: NIHSS 1 (left nasolabial fold flattening) MS: awake, alert, oriented to all spheres. Speech nondysarthric. No language disturbance. Follows commands. Attends to both sides. Some episodic memory impairment on casual conversation. Mood euthymic. Adequate fund of knowledge. CN: pupils 3mm round and reactive. Intolerant of fundoscopy. VFF. Primary gaze centered. Full ocular motility. Facial sensation preserved. Left nasolabial fold is flat. Hearing grossly intact to finger rub. Palatoglossal movements intact. Shoulder shrug and head turn strong. MOTOR: normal bulk/tone. No adventitial movements. Full power throughout, with exception of right hip flexion, which giveway due to pain from hip arthropathy. No drift. SENSORY: intact LT/PP throughout and symmetric. No extinction. COORD: no ataxia FN/HS. Mendoza preserved. REFLEX: plantars equivocal. No clonus. Absent ankle jerks, orther DTRS trace. GAIT: deferred to PT safety eval DATA REVIEW: Labs reviewed in EMR LDL 30 A1c pending TTE - preserved EF, no mass/shunt PERSONALLY INTERPRETED RESULTS AND DATA: CT head wo - per HPI CTA head/neck - per HPI IMPRESSION AND RECOMMENDATIONS: // SUSPECT ACUTE ISCHEMIC STROKE // S/P IV rtPA Patient with abrupt onset aphasia and left face/arm weakness. Aphasia certainly invokes the likelihood of cortical embolization. CTA shows patent intracranial/extracranial vasculature, so high suspicion for cardioembolism as a mechanism. - cont ICU care for post-tPA surveillance - hold antiplatelet/anticoagulants until 24h post-tPA CT head reviewed and cleared of bleeding - BP < 180/105 - LDL at goal < 70, but consider low dose statin for pleiotropic effects - goal A1c < 6.5 - PT/OT/GOLF PROFESSIONAL consults - stroke education - 24 hour post-tPA CT head wo tonight after 1800 - do not transport off floor within the 24hour post-tPA window unless emergent issue arises - plan for MRI brain wo tomorrow - cont monitor on tele Patient critically ill with suspected acute ischemic stroke, having received high risk thrombolytic medication less than 24 hours ago. 45 mins CC time in direct patient care activities on the floor. Objective: Vital Signs Temp Pulse Resp BP Pulse Ox 37.1 C 57 L 20 133/76 H 95 03/21/17 08:30 03/21/17 10:30 03/21/17 10:30 03/21/17 10:30 03/21/17 10:30 Laboratory Results 03/21/17 05:15 03/20/17 03/21/17 03/22/17 05:59 05:59 05:59 Intake Total 828 Balance 828 PT 13.3 SEC (12.0-15.0) 03/20/17 17:55 INR 1.02 (0.83-1.16) 03/20/17 17:55 Allergies/Adverse Reactions: fentanyl Allergy (Severe, Verified 03/11/17 17:38) Loss of consciousness promethazine Allergy (Severe, Verified 03/11/17 17:38) Loss of consciousness Sulfa (Sulfonamide Antibiotics) Allergy (Severe, Verified 03/11/17 17:38) Hives Penicillins Allergy (Unknown, Verified 03/11/17 17:38) Hives
--- NOTE | 2017-03-21 15:35 | HOSPPROG ---
Hospitalist Progress Note Assessment/Plan: #Acute aphasia, hand weakness: -concern for cardioembolic source. s/p t-pa. CTA negative. No PFO on echo -ICU monitoring. BP at goal -statin for pleiotropic effect -repeat MRI in morning. #Suspected thyroid goiter: noted on CT. Outpatient FU #Diet: regular #DVT ppx: SCDs #Disp: cont inpatient admission for ICU/neuro monitoring wit t-Pa Subjective: no headache or numbess Objective: Vital Signs Temp Pulse Resp BP Pulse Ox 37.1 C 66 17 109/67 96 03/21/17 08:30 03/21/17 14:30 03/21/17 14:30 03/21/17 14:30 03/21/17 14:30 Laboratory Results 03/21/17 05:15 03/20/17 03/21/17 03/22/17 05:59 05:59 05:59 Intake Total 828 Balance 828 PT 13.3 SEC (12.0-15.0) 03/20/17 17:55 INR 1.02 (0.83-1.16) 03/20/17 17:55 - Physical Exam Constitutional: no apparent distress Eyes: PERRL Ears, Nose, Mouth, Throat: moist mucous membranes Cardiovascular: regular rate and rhythym Respiratory: no respiratory distress Gastrointestinal: normoactive bowel sounds Genitourinary: no bladder fullness Skin: warm Musculoskeletal: full muscle strength Neurologic: AAOx3, other (spells world backwards and days of week without issue) Psychiatric: interacting appropriately, other (forgetful, easily redirected) ICD10 Worksheet Patient Problems: Problems Problem Status Onset Acute ischemic stroke Acute Altered mental status Acute Difficulty with speech Acute Rectocele Acute 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
[2017-03-22] MEDS: ACETAMINOPHEN 325 MG TAB PO PRN ×2 (03:57→19:36)
[2017-03-22 04:40] LABS: HEMATOCRIT 40.6 % (38.0-47.0); HEMOGLOBIN 13.8 g/dL (12.6-16.3); MEAN CELL HEMOGLOBIN 32.5 pg (27.9-34.1); MEAN CELL VOLUME 95.5 fL (81.5-99.8); RED BLOOD CELL COUNT 4.25 10^6/uL (4.18-5.33); RED CELL DISTRIBUTION WIDTH 13.8 % (11.5-15.2)
[2017-03-22 04:56] LABS: ANION GAP 6 mEq/L (8-16); CALCIUM 8.8 mg/dL (8.5-10.4); CARBON DIOXIDE 27 mEq/l (22-31); CHLORIDE 105 mEq/L (97-110); CREATININE 0.5 mg/dL (0.6-1.0); GLOMERULAR FILTRATION RATE > 60; GLUCOSE 78 mg/dL (70-100); POTASSIUM 4.6 mEq/L (3.5-5.2); SODIUM 138 mEq/L (134-144)
[2017-03-22] MEDS ORDERED: LORazepam 0.5 MG TAB PO ONE ×2 (06:11→10:45)
--- NOTE | 2017-03-22 07:59 | NEUROPROG ---
Assessment: BACKGROUND/INITIAL CONSULT: 03/21 81 year old right-handed woman presented to our facility 03/20 as a stroke alert. She has a documented remote history of TIA, but she denies this. Patient has right hip arthropathy and was at a PT appointment yesterday. She arrived to her appointment at 1630, and 10 minutes into her appointment her therapist noted her to develop abrupt onset aphasia and left face/arm weakness. She was taken to our ED right away. Telestroke evaluated the patient and found her to have aphasia, with NIHSS 4 (lanaguage, questions, commands). CT head wo showed nothing acute, just atrophy and chronic microvascular ischemic changes. CTA head/neck showed no vascular occlusive lesions and normal aortic arch. IV rtPA was administered starting at 1827. Symptoms improved with the rest of the infusion. Today she feels back to baseline. INTERVAL HISTORY: 03/22 Patient feeling well, back to baseline. No new events overnight. Eager to go home. EXAM: VS reviewed in EMR GEN: WDWN laying in NAD NIHSS 1 (left nasolabial fold flattening) MS: awake, alert, oriented to all spheres. Speech nondysarthric. No language disturbance. Follows commands. Attends to both sides. Some episodic memory impairment on casual conversation. Mood euthymic. Adequate fund of knowledge. CN: pupils 3mm round and reactive. Intolerant of fundoscopy. VFF. Primary gaze centered. Full ocular motility. Facial sensation preserved. Left nasolabial fold is flat. Hearing grossly intact to finger rub. Palatoglossal movements intact. Shoulder shrug and head turn strong. MOTOR: normal bulk/tone. No adventitial movements. Full power throughout, with exception of right hip flexion, which giveway due to pain from hip arthropathy. No drift. SENSORY: intact LT/PP throughout and symmetric. No extinction. COORD: no ataxia FN/HS. Mendoza preserved. REFLEX: plantars equivocal. No clonus. Absent ankle jerks, orther DTRS trace. GAIT: deferred to PT safety eval DATA REVIEW: Labs reviewed in EMR LDL 30 A1c pending TTE - preserved EF, no mass/shunt PERSONALLY INTERPRETED RESULTS AND DATA: CT head wo 03/20 - per background CTA head/neck 03/20 - per background CT head wo 03/21 - 24 hr post-tPA - no bleed, unchanged from 03/20 IMPRESSION AND RECOMMENDATIONS: // SUSPECT ACUTE ISCHEMIC STROKE // S/P IV rtPA Patient with abrupt onset aphasia and left face/arm weakness. Aphasia certainly invokes the likelihood of cortical embolization. CTA shows patent intracranial/extracranial vasculature, so high suspicion for cardioembolism as a mechanism. - OK to step down to tele status - start ASA 325mg daily - Goal normotension - intervene for sustained SBPs > 160 - LDL at goal < 70, but will start low dose statin for pleiotropic effects, namely endothelial stabilization - goal A1c < 6.5 - PT/OT/PAINT MIXER HAND consults - MRI brain wo today - cont monitor on tele - may be able to discharge today pending MRI result - further recommendations after MRI interpreted Objective: Vital Signs Temp Pulse Resp BP Pulse Ox 36.7 C 66 14 145/81 H 92 03/21/17 23:58 03/22/17 04:00 03/22/17 04:00 03/22/17 04:00 03/22/17 04:00 Laboratory Results 03/22/17 04:15 03/22/17 04:15 03/21/17 03/22/17 03/23/17 05:59 05:59 05:59 Intake Total 828 1528 Balance 828 1528 PT 13.3 SEC (12.0-15.0) 03/20/17 17:55 INR 1.02 (0.83-1.16) 03/20/17 17:55 Allergies/Adverse Reactions: fentanyl Allergy (Severe, Verified 03/11/17 17:38) Loss of consciousness promethazine Allergy (Severe, Verified 03/11/17 17:38) Loss of consciousness Sulfa (Sulfonamide Antibiotics) Allergy (Severe, Verified 03/11/17 17:38) Hives Penicillins Allergy (Unknown, Verified 03/11/17 17:38) Hives
[2017-03-22] MEDS: OMEGA-3 FATTY ACIDS 1,000 MG CAP PO SCH (08:16)
[2017-03-22] MEDS: ASPIRIN EC 325 MG TAB PO SCH (08:16)
[2017-03-22] MEDS: ATORVASTATIN CALCIUM 10 MG TAB PO SCH (08:16)
[2017-03-22] MEDS: MULTIVITAMINS 1 EACH TAB PO SCH (08:16)
--- NOTE | 2017-03-22 09:07 | PDINTPN ---
Unpaid Intern Progress Note Assessment/Plan: Assessment/plan: * Acute stroke-status post tPA. Patient is markedly improved with no evidence of neurologic impairment -MRI pending for today * History of TIAs * Disposition-likely will be discharged home today. Subjective: Sitting up in chair eating breakfast. No current complaints. Objective: Vital Signs Temp Pulse Resp BP Pulse Ox 36.6 C 64 20 142/80 H 92 03/22/17 08:00 03/22/17 08:00 03/22/17 08:00 03/22/17 08:00 03/22/17 08:00 Laboratory Results 03/22/17 04:15 03/22/17 04:15 03/21/17 03/22/17 03/23/17 05:59 05:59 05:59 Intake Total 828 1528 Balance 828 1528 PT 13.3 SEC (12.0-15.0) 03/20/17 17:55 INR 1.02 (0.83-1.16) 03/20/17 17:55 Physical Exam - Physical Exam General Appearance: WD/WN, alert, no apparent distress EENT: PERRL/EOMI Neck: non-tender, full range of motion, supple, normal inspection Respiratory: chest non-tender, lungs clear, normal breath sounds Cardiac/Chest: normal peripheral pulses, regular rate, rhythm Peripheral Pulses: 2+: carotid (R), carotid (L), femoral (R), femoral (L), dorsalis-pedis (R), dorsalis-pedis (L) Abdomen: normal bowel sounds, non-tender, soft Pelvic Exam: deferred Rectal: deferred Skin: normal color, warm/dry Neuro/Psych: no motor/sensory deficits, alert, normal mood/affect, oriented x 3 ICD10 Worksheet Patient Problems: Problems Problem Status Onset Acute ischemic stroke Acute Altered mental status Acute Difficulty with speech Acute Rectocele Acute 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
--- NOTE | 2017-03-22 11:33 | HOSPPROG ---
Hospitalist Progress Note Assessment/Plan: #Acute aphasia, hand weakness: -concern for cardioembolic source. s/p t-pa. CTA negative. No PFO on echo -ICU monitoring. BP at goal -statin for pleiotropic effect -repeat MRI today at 1pm. Working with OT for cognition #Suspected thyroid goiter: noted on CT. Outpatient FU #Diet: regular #DVT ppx: SCDs #Disp: cont inpatient admission for ICU/neuro monitoring wit t-Pa Subjective: walking the unit well. Objective: Vital Signs Temp Pulse Resp BP Pulse Ox 36.6 C 64 20 142/80 H 92 03/22/17 08:00 03/22/17 08:00 03/22/17 08:00 03/22/17 08:00 03/22/17 08:00 Laboratory Results 03/22/17 04:15 03/22/17 04:15 03/21/17 03/22/17 03/23/17 05:59 05:59 05:59 Intake Total 828 1528 Balance 828 1528 PT 13.3 SEC (12.0-15.0) 03/20/17 17:55 INR 1.02 (0.83-1.16) 03/20/17 17:55 - Physical Exam Constitutional: no apparent distress Eyes: PERRL Ears, Nose, Mouth, Throat: moist mucous membranes Cardiovascular: regular rate and rhythym Respiratory: no respiratory distress Gastrointestinal: normoactive bowel sounds, soft, non-tender abdomen Genitourinary: no bladder fullness Skin: warm Musculoskeletal: full muscle strength Neurologic: AAOx3 Psychiatric: other (forgetful, but easily directable) ICD10 Worksheet Patient Problems: Problems Problem Status Onset Acute ischemic stroke Acute Altered mental status Acute Difficulty with speech Acute Rectocele Acute 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
--- NOTE | 2017-03-22 14:06 | PDIAF ---
- Diagnosis Diagnosis: aphasia Code Status: Full Code - Medication Management Discharge Medications: Medications to Continue on Transfer Herbals/Supplements -Info Only 1 ea PO DAILY 02/09/15 [Last Taken 02/09/16] Multivitamins [Multivitamin (*)] 1 each PO DAILY 02/09/15 [Last Taken 02/09/16] [place]-3 Fatty Acids [Fish Oil 1000 mg (*)] 1,000 mg PO DAILY 02/16/15 [Last Taken 02/09/16] Acetaminophen [Tylenol 325mg (*)] 325 mg PO Q6 PRN 01/06/16 [Last Taken 02/09/16 ] Discharge Medications: Refer to the Discharge Home Medication list for PRN reason. - Orders Services needed: Home Care, Certified Foam Molder, Physical Therapy, Occupational Therapy, Speech Language Pathologist Home Care Face to Face: I certify that this patient was under my care and that I had the required [id number] encounter meeting the encounter requirements on the discharge day. My findings support the fact that the patient is homebound as defined in Home Care Face to Face Continued: CMS Chapter 7 Medicare Benefits Manual 30.1.1 , The condition of the patient is such that there exists a normal inability to leave home and consequently, leaving home would require a considerable and taxing effort. Diet Texture: Regular Texture Diet, Thin Liquids - Follow Up Care Current Providers and Referrals: Patient,NotPresent [Unknown] - As per Instructions
--- NOTE | 2017-03-22 15:18 | ASMTCMCOM ---
CM Note CM Note Notes: Patient was discharged home with home care today, but family had concerns that they did not have enough time to set up support services. Dr Strange rescinded the discharge. I spoke with patient's daughter Evon about PT/OT recommendations for home ("daily supervision" and home care PT/OT). I set up skilled PT/OT/SCRAP STRIPPER HAND through [facility]. Evon is in touch with [facility] re: unskilled supervisory help. She will also try to arrange her schedule to provide some supervision. She is also locating the recommended DME. I did ask Evon if she wanted me to refer patient to a SNF but she did not. Likely discharge tomorrow to home with home care and daily supervision by family and/or private duty caregiving. CM to help facilitate. Date Signed: 03/22/2017 03:17 PM Electronically Signed By:Geri Edgar RN
[2017-03-23] MEDS: ATORVASTATIN CALCIUM 10 MG TAB PO SCH (07:40)
[2017-03-23] MEDS: MULTIVITAMINS 1 EACH TAB PO SCH (07:40)
[2017-03-23] MEDS: OMEGA-3 FATTY ACIDS 1,000 MG CAP PO SCH (07:40)
[2017-03-23] MEDS: ASPIRIN EC 325 MG TAB PO SCH (07:41)
[2017-03-23 08:45] VITALS: BP 119/71; PULSE 75; RESP 14; TEMP 97.8; O2SAT 91
--- NOTE | 2017-03-23 09:25 | PDIAF ---
- Diagnosis Diagnosis: aphasia Code Status: Full Code - Medication Management Discharge Medications: Medications to Continue on Transfer Herbals/Supplements -Info Only 1 ea PO DAILY 02/09/15 [Last Taken 02/09/16] Multivitamins [Multivitamin (*)] 1 each PO DAILY 02/09/15 [Last Taken 02/09/16] [place]-3 Fatty Acids [Fish Oil 1000 mg (*)] 1,000 mg PO DAILY 02/16/15 [Last Taken 02/09/16] Acetaminophen [Tylenol 325mg (*)] 325 mg PO Q6 PRN 01/06/16 [Last Taken 02/09/16 ] Aspirin EC [Aspirin EC 325 mg (*)] 325 mg PO DAILY #30 tab 03/22/17 [Last Taken Unknown] Rosuvastatin Calcium [Crestor 10mg (RX)] 10 mg PO DAILY #30 tab 03/22/17 [Last Taken Unknown] Discharge Medications: Refer to the Discharge Home Medication list for PRN reason. - Orders Services needed: Home Care, Certified Solar Sales Representative, Physical Therapy, Occupational Therapy, Speech Language Pathologist Home Care Face to Face: I certify that this patient was under my care and that I had the required [id number] encounter meeting the encounter requirements on the discharge day. My findings support the fact that the patient is homebound as defined in Home Care Face to Face Continued: CMS Chapter 7 Medicare Benefits Manual 30.1.1 , The condition of the patient is such that there exists a normal inability to leave home and consequently, leaving home would require a considerable and taxing effort. Diet Recommendation: cardiac -low fat low salt Diet Texture: Regular Texture Diet, Thin Liquids - Follow Up Care Current Providers and Referrals: Patient,NotPresent [Unknown] - As per Instructions
--- NOTE | 2017-03-23 13:01 | HOSPPROG ---
Hospitalist Progress Note Assessment/Plan: #Acute aphasia, hand weakness: -concern for cardioembolic source. s/p t-pa. CTA negative. No PFO on echo -ICU monitoring. BP at goal -statin for pleiotropic effect -repeat MRI today at 1pm. Working with OT for cognition #Suspected thyroid goiter: noted on CT. Outpatient FU #Diet: regular #DVT ppx: SCDs #Disp: cont inpatient admission for ICU/neuro monitoring wit t-Pa Subjective: no acute issues. Objective: Vital Signs Temp Pulse Resp BP Pulse Ox 36.6 C 75 14 119/71 91 L 03/23/17 08:00 03/23/17 08:00 03/23/17 08:00 03/23/17 08:00 03/23/17 08:00 Laboratory Results 03/22/17 04:15 03/22/17 04:15 03/22/17 03/23/17 03/24/17 05:59 05:59 05:59 Intake Total 1528 1550 Balance 1528 1550 PT 13.3 SEC (12.0-15.0) 03/20/17 17:55 INR 1.02 (0.83-1.16) 03/20/17 17:55 - Physical Exam Constitutional: no apparent distress Eyes: PERRL Ears, Nose, Mouth, Throat: moist mucous membranes Cardiovascular: regular rate and rhythym Respiratory: no respiratory distress Gastrointestinal: normoactive bowel sounds, soft, non-tender abdomen Genitourinary: no bladder fullness Skin: warm Musculoskeletal: full muscle strength Neurologic: AAOx3, CN II-XII Intact Psychiatric: interacting appropriately ICD10 Worksheet Patient Problems: Problems Problem Status Onset Acute ischemic stroke Acute Altered mental status Acute Difficulty with speech Acute Rectocele Acute 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
--- NOTE | 2017-03-23 13:27 | GDS ---
[f rep st] DISCHARGE SUMMARY DISCHARGE DIAGNOSES: Acute ischemic stroke, status post tPA. HISTORY OF PRESENT ILLNESS: An 81-year-old female with history of TIAs in the past, who presented fr om physical therapy with word difficulty finding. She suddenly developed mental status change with p erseveration and difficulty speaking. She was aggressive when EMS arrived. In the emergency room, s he received tPA for acute ischemia. HOSPITAL COURSE: Acute ischemic stroke: Presented with aphasia. Status post tPA without complicati on. Head CT, CTA and MR of brain unremarkable. Echocardiogram was negative for PFO. No evidence of atrial fibrillation on EKG or telemetry here. The patient will be discharged home with PT, OT, and speech therapy. Start a full-dose aspirin and low-dose statin for pleiotropic effect. DISPOSITION: Patient is stable. Home with PT, OT, and speech therapy. MEDICATIONS: New medications: Aspirin 325 daily. Crestor 10 mg. FOLLOW UP: 1. Primary care physician. 2. Dr. Rock with Neurology. /[id number]/MODL
--- NOTE | 2017-03-23 13:52 | ASMTCMCOM ---
CM Note CM Note Notes: Pt medically stable for d/c w [facility], private pay caregivers and family providing supervision. Orders sent in Allscripts. Date Signed: 03/23/2017 01:52 PM Electronically Signed By:CLIFTON Garber
--- NOTE | 2017-03-23 13:53 | ASDISCHSUM ---
Discharge Information Plan Status:Home with Home Health Medically Cleared to Leave: Discharge Date:03/23/2017 01:18 PM CM D/C Disposition:Home Health Service ADT D/C Disposition:Home, Routine, Self-Care Projected Discharge Date:03/22/2017 04:00 PM Transportation at D/C: Discharge Delay Reason: Follow-Up Date:03/22/2017 04:00 PM Discharge Slot: Final Diagnosis: Placement Information Referral Type:*Home Health Care Services Referral ID:[id number] Provider Name:[facility] ([facility]) Address 1:[address] [address] Address 2: City:[place] Selection Factors: State:[place] Patient Contact Information Contact Name:HEAVEN Relationship:Daughter Address:[address] [place] [address] Work Phone: [facility] Alternate Phone: [facility] Code: Email: Financial Information Financial Class: Primary Plan Desc:MEDICARE INPATIENT Primary Plan Number:[id number] Secondary Plan Desc:[facility] INDEMNITY Secondary Plan Number:[id number] Assessment Information [facility] CM Progress Note CM Note CM Note Notes: 81 year old female admitted for AMS and aphasia. Tx TPA found to also have a multinodular goiter. Therapies to eval. May not have discharge needs. CM to follow Date Signed: 03/21/2017 08:56 AM Electronically Signed By:Louann Kramer LCSW [facility] CM Progress Note CM Note CM Note Notes: Patient was discharged home with home care today, but family had concerns that they did not have enough time to set up support services. Dr Strange rescinded the discharge. I spoke with patient's daughter Evon about PT/OT recommendations for home ("daily supervision" and home care PT/OT). I set up skilled PT/OT/MEDICAL STAFFING COORDINATOR through [facility]. Evon is in touch with [facility] re: unskilled supervisory help. She will also try to arrange her schedule to provide some supervision. She is also locating the recommended DME. I did ask Evon if she wanted me to refer patient to a SNF but she did not. Likely discharge tomorrow to home with home care and daily supervision by family and/or private duty caregiving. CM to help facilitate. Date Signed: 03/22/2017 03:17 PM Electronically Signed By:Geri Edgar RN [facility] CM Progress Note CM Note CM Note Notes: Pt medically stable for d/c w [facility], private pay caregivers and family providing supervision. Orders sent in Allscripts. Date Signed: 03/23/2017 01:52 PM Electronically Signed By:CLIFTON Garber Intervention Information
--- NOTE | 2017-03-23 18:14 | GDS ---
[f rep st] DISCHARGE SUMMARY DISCHARGE DIAGNOSES: 1. Acute aphasia and weakness. 2. Suspected thyroid goiter. 3. History of transient ischemic attack. 4. Acute ischemic stroke, status post tPA. HISTORY OF PRESENT ILLNESS: An 81-year-old female with a history of TIA who presented to the emergen cy room as a stroke alert. She had a remote history of TIA, but she denies. She recently had right hip surgery and was at a physical therapy appointment. When she arrived at 1630 hours, there was an abrupt onset of aphasia and left arm/face weakness. Ivan Bradford evaluated patient and found her to be a phasic with an NIHSS score of 4. CTA was negative, thus she received tPA. CT of the head and neck s howed no vascular lesions. Symptoms improved with tPA. HOSPITAL COURSE BY PROBLEM: 1. Acute ischemic stroke: Status post tPA with improvement of symptoms. She does have some short-t erm memory issues at this time, but this is old per her daughter. She will be discharged home with deena barrios with PT, OT, and speech evaluation. There was no PFO on echocardiogram. No evidence of atrial fibrillation. She was started on full-dose aspirin and a statin for pleiotropic affect. MRI showed nothing acute. She is to follow up with Neurology in 4-6 weeks. 2. Suspected thyroid goiter. This was noted on her CT scan. She warrants outpatient followup ultra sound. MEDICATIONS: New medications: 1. Aspirin 325 mg daily. 2. Crestor 10 mg daily. FOLLOWUP: 1. Neurology in 4-6 weeks. 2. Primary care physician for thyroid ultrasound. /[id number]/MODL
== END 2017-03-23 13:18 | disposition home or self-care (01) | DRG 62 ==
LOC: EDUNIT# → F2N 20:25 → F3N 03-22 16:46
PROVIDERS: ADMIT Internal Medicine; ATTEND Internal Medicine
DX: I63.9 Cerebral infarction, unspecified (principal); R47.01 Aphasia; E04.9 Nontoxic goiter, unspecified; E87.1 Hypo-osmolality and hyponatremia; I10 Essential (primary) hypertension; Z96.641 Presence of right artificial hip joint; Z86.73 Personal history of transient ischemic attack (TIA), and cerebral infarction without residual deficits
CPT/HCPCS: 80305; 82947-QW; 92507-GN; 92523-GN; 92610-GN; 96374; 97116-GP; 97162-GP; 97166-GO; 97535-GO; G8978-GP-CI; G8979-GP-CI; G8987-GO-CJ; G8988-GO-CI; G8996-GN-CH; G8997-GN-CH; G8998-GN-CH; G9165-GN-CJ; G9166-GN-CI; J2060; J2997; Q9967

== ENCOUNTER → 2017-08-14 | Outpatient (CLI) | payer OTHER | LOC: FIMAGING 09:29 | PROVIDERS: ATTEND Internal Medicine Endocrinology, Diabetes & Metabolism | DX: E04.2 Nontoxic multinodular goiter (principal) ==

== ENCOUNTER 2017-08-16 12:15 | Inpatient (IN) | payer OTHER ==
[2017-09-13] MEDS ORDERED: TRANEXAMIC ACID 3,000 MG in NS (SYRINGE) 50 ML IRR ONE (06:00)
[2017-09-13] MEDS ORDERED: ROPIVACAINE 0.2% 80 MG, EPINEPHrine 0.2 MG, KETOROLAC TROMETHAMINE 30 MG in SYRINGE 0 ML IU ONE (06:00)
[2017-09-13] MEDS ORDERED: ACETAMINOPHEN 325 MG TAB PO ONE (06:09)
[2017-09-13] MEDS ORDERED: ceFAZolin 2 GM/SWFI 2 GM/20 ML SYR IVP ONE (06:09)
[2017-09-13] MEDS ORDERED: FAMOTIDINE 20 MG TAB PO ONE (06:09)
[2017-09-13] MEDS ORDERED: DEXAMETHASONE 4 MG/ML VIAL IVP ONE (06:09)
[2017-09-13] MEDS ORDERED: LR 1,000 ML IV ONE (06:15)
[2017-09-13] MEDS ORDERED: LIDOCAINE 1% 2 ML INJ ID PRN (06:15)
[2017-09-13] MEDS ORDERED: ACETAMINOPHEN 325 MG TAB ONE (07:02)
[2017-09-13] MEDS ORDERED: FAMOTIDINE 20 MG TAB ONE (07:02)
[2017-09-13] MEDS ORDERED: DEXAMETHASONE 4 MG/ML VIAL ONE (07:02)
--- NOTE | 2017-09-13 07:12 | PDHPUP ---
History & Physical Update H&P update statement: This history and physical update is based on an assessment of the patient which was completed after admission or registration (within 24 hours), but prior to the surgery/procedure. H&P update: H&P reviewed & patient examined, no change in patient's condition since H&P completed
[2017-09-13] MEDS ORDERED: TRANEXAMIC ACID 3,000 MG/50 ML BAG IRR ONE (07:35)
[2017-09-13] MEDS ORDERED: ALBUTEROL 3 ML DEYVIAL IH PRN (07:47)
[2017-09-13] MEDS ORDERED: oxyCODONE IR 5 MG TAB PO PRN (07:47)
[2017-09-13] MEDS ORDERED: HYDROmorphONE/DILAUDID 2 MG/ML INJ IVP PRN (07:47)
[2017-09-13] MEDS ORDERED: DEXAMETHASONE 4 MG/ML VIAL IVP PRN (07:47)
[2017-09-13] MEDS ORDERED: MIDAZOLAM 2 MG/2 ML VIAL IVP ONE (07:47)
[2017-09-13] MEDS ORDERED: ACETAMINOPHEN 500 MG TAB PO PRN (07:47)
[2017-09-13] MEDS ORDERED: ONDANSETRON 4 MG/2 ML VIAL IVP PRN ×2 (07:47→09:24)
[2017-09-13] MEDS ORDERED: NALOXONE HCL 0.4 MG/ML INJ IVP PRN (07:47)
--- NOTE | 2017-09-13 07:51 | PDANEPAE ---
ANE History of Present Illness R Hip ANE Past Medical History - Cardiovascular History Hx Hypertension: No Hx Arrhythmias: No Hx Chest Pain: No Hx Coronary Artery / Peripheral Vascular Disease: No Hx CHF / Valvular Disease: Yes Hx Palpitations: No Cardiovascular History Comment: POSS A FIB. LOOP RECORDER. HCTZ for periodic edema - Pulmonary History Hx COPD: No Hx Asthma/Reactive Airway Disease: No Hx Recent Upper Respiratory Infection: No Hx Oxygen in Use at Home: No Hx Sleep Apnea: No Sleep Apnea Screening Result - Last Documented: Negative - Neurologic History Hx Cerebrovascular Accident: Yes Hx Seizures: No Hx Dementia: No Neurologic History Comment: CVA 03/2017 -NO RESIDUAL - Endocrine History Hx Diabetes: No - Renal History Hx Renal Disorders: Yes Renal History Comment: LEAKY BLADDER - WEARS PAD - Liver History Hx Hepatic Disorders: No - Neurological & Psychiatric Hx Hx Neurological and Psychiatric Disorders: No Neurological / Psychiatric History Comment: PERIPHERAL NEUROPATHY - Cancer History Hx Cancer: No - Congenital Disorder History Hx Congenital Disorders: No - GI History Hx Gastrointestinal Disorders: Yes Gastrointestinal History Comment: IBS - Other Health History Other Health History: OSTEOARTHRITIS. OSTEOPENIA - Chronic Pain History Chronic Pain: No - Surgical History Prior Surgeries: LOOP RECORDER IMPLANTED 05/2017. LT TOTAL HIP X2. R TKA. HYSTERECTOMY. PROLAPSE SURG. KEVEN BREAST AUG. KEVEN CATARACT ANE Review of Systems Review of Systems: - Exercise capacity METS (RN): 4 METS ANE Patient History - Allergies Allergies/Adverse Reactions: fentanyl Allergy (Severe, Verified 07/17/17 10:45) "LOOPY " & Loss of consciousness promethazine Allergy (Severe, Verified 07/17/17 10:45) "LOOPY" & Loss of consciousness Sulfa (Sulfonamide Antibiotics) Allergy (Severe, Verified 07/17/17 10:45) Hives Penicillins Allergy (Unknown, Verified 07/17/17 10:45) Hives - Home Medications Home Medications: Herbals/Supplements -Info Only 1 ea PO DAILY 02/09/15 [Last Taken 09/06/17] Acetaminophen [Tylenol 325mg (*)] 325 mg PO Q6 PRN 01/06/16 [Last Taken 02/09/16 ] Rosuvastatin Calcium [Crestor 10mg (RX)] 10 mg PO HS 07/10/17 [Last Taken ] - NPO status NPO Since - Liquids (Date): 05/09/18 NPO Since - Liquids (Time): 03:00 NPO Since - Solids (Date): 09/12/17 NPO Since - Solids (Time): 20:00 - Smoking Hx Smoking Status: Former smoker - Family Anes Hx Family Hx Anesthesia Complications: NEG ANE Labs/Vital Signs - Vital Signs Blood Pressure: 135/70 Heart Rate: 58 Respiratory Rate: 16 O2 Sat (%): 93 Height: 163.83 cm Weight: 50.349 kg ANE Physical Exam - Airway Neck exam: FROM Mallampati Score: Class 2 - Pulmonary Pulmonary: clear to auscultation - Cardiovascular Cardiovascular: regular rate and rhythym - ASA Status ASA Status: II ANE Anesthesia Plan Anesthesia Plan: spinal
[2017-09-13] MEDS ORDERED: MIDAZOLAM 2 MG/2 ML VIAL ONE (07:53)
[2017-09-13] MEDS ORDERED: PROPOFOL/EMULSION 500 MG/50 ML BOTTLE IV ONE (07:57)
[2017-09-13] MEDS ORDERED: PROPOFOL 200 MG/20 ML VIAL ONE (08:05)
[2017-09-13] MEDS ORDERED: LIDOCAINE 2% 5 ML SDV ONE (08:06)
[2017-09-13] MEDS ORDERED: ONDANSETRON 4 MG/2 ML VIAL ONE (09:07)
[2017-09-13] MEDS ORDERED: CYCLOBENZAPRINE 10 MG TAB PO PRN (09:24)
[2017-09-13] MEDS ORDERED: BISACODYL 10 MG SUPP PR PRN (09:24)
[2017-09-13] MEDS ORDERED: LACTULOSE 20 GM/30 ML UDCUP PO PRN (09:24)
[2017-09-13] MEDS ORDERED: DIPHENOXYLATE/ATROPINE LOMOTIL 1 TAB PO PRN (09:24)
[2017-09-13] MEDS ORDERED: POLYETHYLENE GLYCOL 3350 17 GM PKT PO PRN (09:24)
[2017-09-13] MEDS ORDERED: METOCLOPRAMIDE 10 MG/2 ML VIAL IVP PRN (09:24)
[2017-09-13] MEDS ORDERED: ONDANSETRON DISINTEGRATING 4 MG TAB PO PRN (09:24)
[2017-09-13] MEDS ORDERED: MAGNESIUM HYDROXIDE 30 ML UDCUP PO PRN (09:24)
[2017-09-13] MEDS ORDERED: TEMAZEPAM 15 MG CAP PO PRN (09:24)
[2017-09-13] MEDS ORDERED: diphenhydrAMINE 25 MG CAP PO PRN (09:24)
--- NOTE | 2017-09-13 09:27 | POSTANESTH ---
Post Anesthetic Evaluation Cardiovascular Status: Normal, Stable Respiratory Status: Normal, Stable Level of Consciousness/Mental Status: Mildly Sleepy, Arousable Pain Control: Adequate, Prn Tx Ordered Nausea/Vomiting Control: Adequate, Prn Tx Ordered Complications Possibly Related to Anesthesia: None Noted
[2017-09-13] MEDS ORDERED: LR 1,000 ML IV SCH (09:30)
--- NOTE | 2017-09-13 11:35 | POSTOPPROG ---
Post Op Note Date of Operation: 09/13/17 Surgeon: Jey Gomes Top Dyeing Machine Tender: olga gomes Anesthesiologist: dr. malone Anesthesia: Spinal Pre-op Diagnosis: right hip OA Post-op Diagnosis: same Indication: right hip pain due to OA that failed conservative measures Procedure: R AYAAN ant approach Findings: severe hip OA Inf/Abcess present in the surg proc area at time of surgery?: No EBL: 100-500
[2017-09-13] MEDS: ACETAMINOPHEN 325 MG TAB PO SCH ×3 (12:11→23:36)
--- NOTE | 2017-09-13 12:38 | PDMN ---
Medical Necessity Medical necessity: IP surgery per [facility] cpt [id number] R AYAAN
[2017-09-13] MEDS: oxyCODONE IR 5 MG TAB PO PRN ×2 (13:21→21:12)
[2017-09-13] MEDS ORDERED: ceFAZolin 2 GM/DEXTROSE 100 ML IV SCH (14:00)
[2017-09-13] MEDS: ceFAZolin 2 GM/SWFI 2 GM/20 ML SYR IVP SCH ×2 (17:06→23:36)
--- NOTE | 2017-09-13 19:25 | GOP ---
[f rep st] OPERATIVE REPORT DATE OF OPERATION: 09/13/2017 SURGEON: Poppy Alexis MD GRAIN MIXER: IVANIA Martinez. ANESTHESIA: Spinal. PREOPERATIVE DIAGNOSIS: Right hip osteoarthritis. POSTOPERATIVE DIAGNOSIS: Right hip osteoarthritis. PROCEDURE PERFORMED: Right total hip arthroplasty with x-ray. FINDINGS: ESTIMATED BLOOD LOSS: 200 cc. INDICATIONS: The patient has progressively worsening arthritis of the hip which has failed medical m anagement. The patient understands the treatment options including continued non-operative care and has selected surgical intervention. The patient has decided to undergo total hip arthroplasty via th e direct anterior approach, understanding the risks of the procedure including, but not limited to, n eurovascular injury, infection, persistent pain, component wear and loosening, deep venous thrombosis , pulmonary embolism, limb length inequality, hip instability (including dislocation), and intra-oper ative fractures. DESCRIPTION OF PROCEDURE: After proper identification of the patient including verification and lois ing the surgical site, the patient was brought to the operating room and placed in the supine positio n. All bony prominences were well padded. Anesthesia was induced without complication and intraveno us prophylactic antibiotics were administered prior to skin incision. The operative leg was placed in the Trumpf Arch table extension and the well leg in a [place]in leg ho lder. The patient was prepped and draped in the usual sterile fashion. The C-arm was draped for int ra-operative fluoroscopy to check acetabular position, femoral component position including leg lengt h and femoral offset. Attention was then drawn to surgical exposure of the hip. An incision was made with a #10 [place] r blade starting 3 cm lateral and 3 cm distal to the anterior superior iliac spine measuring 8-10 cm and coursing distally toward the greater trochanter. The skin and subcutaneous tissues were divided sharply down to the fascia elena. The fascia elena was incised in line with the skin incision exposing the underlying tensor fascia elena muscle. The muscle was bluntly elevated from the fascia and the f irst extracapsular Cobra retractor was placed laterally at the junction of the superior femoral neck and greater trochanter. The lateral femoral circumflex vessels were identified, cauterized, and divi ded with the Aquamantys bipolar cautery. The deep investing fascia of the TFL was divided to allow p corrie mobilization of the muscle preventing damage during the retraction. The reflected head of the rectus femoris muscle was elevated off the anterior hip capsule and a medial Cobra retractor was plac ed just proximal to the lesser trochanter. The anterior capsulotomy was made sharply from the superolateral acetabulum to the saddle junction of the superior femoral neck and greater trochanter, then coursing inferomedial towards the lesser troc hanter. The retractors were then placed in the intracapsular position for femoral neck osteotomy. C orresponding to pre-operative templating, the osteotomy was made with the oscillating saw carefully p rotecting the greater trochanter and soft tissues. The femoral head was removed from the acetabulum with a corkscrew and confirmed to be severely arthritic with exposed bone, deformity and osteophytes. Similar findings were confirmed in the acetabulum. The Arch table extension was then placed in 40 degrees external rotation. Attention was then drawn to the acetabular preparation. After placement of the anterior and posterio r Cobra retractors outside the labrum and intracapsular, the circumferential labrum was removed sharp ly. The foveal contents were then removed and hemostasis obtained with cautery. The first reamer selected was sized using the removed femoral head. Reaming began with medialization and then commenced in 2 mm increments at 45 degrees of abduction and 15 degrees of anteversion using fluoroscopic navigation. Reaming ceased 1 mm less than the definitive acetabular component and anjum esponded to the pre-operative templating. The final acetabular component was inserted using fluorosc opy to achieve proper orientation yielding excellent purchase and stability in the acetabulum. The f inal acetabular liner was then placed and its seating confirmed. Attention was then turned to the femur. The Arch table extension was placed in extension and adducti on, delivering the osteotomized femoral neck into the wound. A 2-pronged femoral elevator was placed at the calcar and another at the tip of the greater trochanter. The posterolateral capsule was rele ased with cautery allowing mobilization of the femur lateral and anterior for preparation. The exter nal rotators were visualized and preserved. A curette and rongeur were used to open the starting poi nt for broaching. Serial broaching started with the #0 broach and ended with the broach that exhibit ed excellent fit in the proximal femur. A change in pitch during mallet strikes was accompanied by t he inability to advance the broach any further. The trial reduction was performed and fluoroscopic n avigation was utilized to check limb length. Adjustments were made to equalize limb length according ly. After the final trials were accepted they were removed and the wound was copiously lavaged. The femo ral component was seated to the same depth as the final broach and the femoral head was impacted onto the clean trunnion. The hip was then reduced for the final time and once more fluoroscopy was used to check that limb length equality was achieved. The wound was irrigated and closed in layers, the fascia elena with 2-0 Quill, the subcutaneous tissue with 2-0 Quill, and the skin with Dermabond. Sterile dressings were applied. Final sharps and spon ge counts were accurate. The patient was then transferred to a hospital bed and brought to the [facility] room in stable condition. IMPLANTS: Accolade II size 5 at 127. Acetabular component a Trident 2, 54 mm. The liner is a Tride nt X3, 36 mm. Head is a Biolox Delta 36 mm, -2.5. /[id number]/MODL
[2017-09-13] MEDS ORDERED: ROSUVASTATIN CALCIUM 10 MG TAB PO SCH (21:00)
[2017-09-13] MEDS: SENNOSIDES/DOCUSATE SODIUM TAB PO SCH (21:11)
[2017-09-13] MEDS: ASPIRIN 81 MG CHEWABLE TAB PO SCH (21:12)
[2017-09-13] MEDS: FAMOTIDINE 20 MG TAB PO SCH (21:12)
[2017-09-14] MEDS: ACETAMINOPHEN 325 MG TAB PO SCH (04:59)
[2017-09-14] MEDS: oxyCODONE IR 5 MG TAB PO PRN ×2 (06:14→11:07)
[2017-09-14 07:34] VITALS: BP 112/59
[2017-09-14] MEDS: SENNOSIDES/DOCUSATE SODIUM TAB PO SCH (08:20)
[2017-09-14] MEDS: ASPIRIN 81 MG CHEWABLE TAB PO SCH (08:20)
[2017-09-14] MEDS: FAMOTIDINE 20 MG TAB PO SCH (08:20)
--- NOTE | 2017-09-14 10:18 | ASMTCMCOM ---
CM Note CM Note Notes: Pt s/p R AYAAN. PT rec home, pt has support from dghtr who is local and son who will assist her. Pt has access to food and will private pay for [facility] unskilled home care. No CM d/c needs identified. Date Signed: 09/14/2017 10:17 AM Electronically Signed By:CLIFTON Garber
--- NOTE | 2017-09-14 15:05 | SOAPPROG ---
SOAP Progress Note Assessment/Plan: Assessment: Patient is doing well POD 1 s/p R AYAAN 1) pain management: pain is well controlled on oral pain meds. 2) VTE ppx: recommend ASA 81 mg BID for 4 weeks 3) anemia: level is expected initially postop 4) d/c planning: d/c to home vs tomorrow once PT releases patient. Recommend FWW for 3 weeks minimum Plan: 09/14/17 15:03 09/14/17 15:04 Subjective: Richa is doing well today, denies SOB ,chest pain and N/v Objective: Vital Signs Temp Pulse Resp BP Pulse Ox 36.9 C 52 L 16 112/59 L 99 09/14/17 07:33 09/14/17 07:33 09/14/17 07:33 09/14/17 07:33 09/14/17 07:33 Laboratory Results 09/14/17 04:56 09/14/17 04:56 09/13/17 09/14/17 09/15/17 05:59 05:59 05:59 Intake Total 2155 Output Total 2500 Balance -345 RLE: incision dressing is clean and dry, NVI, +pf/df ICD10 Worksheet Patient Problems: Problems Problem Status Onset Acute ischemic stroke Acute Altered mental status Acute Difficulty with speech Acute Primary localized osteoarthritis of right hip Acute Rectocele Acute 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
--- NOTE | 2017-09-18 09:27 | GDS ---
[f rep st] DISCHARGE SUMMARY ADMISSION DIAGNOSIS: Right hip osteoarthritis. DISCHARGE DIAGNOSIS: Right hip osteoarthritis. PROCEDURE: Right total hip arthroplasty. VTE PROPHYLAXIS: Recommend aspirin 81 mg twice daily for 4 weeks. BRIEF DESCRIPTION OF HOSPITAL STAY: Patient was admitted for an elective joint arthroplasty. The pa tient tolerated the procedure well and has passed physical therapy. The patient was given appropriat e antibiotic prophylaxis and venous thromboembolism prophylaxis. The patient's pain was well control led on oral pain medication, patient was holding down food, and had urinated. Decision was made to d ischarge the patient. The patient was given post-operative prescriptions pre-operatively. PLAN: Followup as scheduled Dr. Alexis's office in 3 weeks. /[id number]/MODL
== END 2017-09-14 11:55 | disposition home or self-care (01) | DRG 470 ==
LOC: F3N 09-13 05:53
PROVIDERS: ADMIT Orthopaedic Surgery; ATTEND Orthopaedic Surgery
PROC: 0SR904A Replacement of Right Hip Joint with Ceramic on Polyethylene Synthetic Substitute, Uncemented, Open Approach (ICD-10-PCS; principal; 2017-09-13 08:15)
DX: M16.11 Unilateral primary osteoarthritis, right hip (principal); Z86.73 Personal history of transient ischemic attack (TIA), and cerebral infarction without residual deficits; G62.9 Polyneuropathy, unspecified; K58.9 Irritable bowel syndrome, unspecified; Z96.642 Presence of left artificial hip joint; Z96.651 Presence of right artificial knee joint
CPT/HCPCS: 97116-GP; 97161-GP; 97165-GO; 97535-GO; G8978-GP-CI; G8979-GP-CI; G8980-GP-CI; G8987-GO-CI; G8988-GO-CI; G8989-GO-CI; J0171; J0690; J1100; J1885; J2250; J2405; J2704; J2795

== ENCOUNTER → 2018-06-07 | Outpatient (CLI) | payer OTHER | LOC: FIMAGING 12:00 | PROVIDERS: ATTEND Internal Medicine | DX: J98.4 Other disorders of lung (principal); R05 Cough | CPT/HCPCS: 82607-90 ==

== ENCOUNTER → 2018-08-21 | Outpatient (CLI) | payer OTHER | LOC: FIMAGING 16:01 | PROVIDERS: ATTEND Internal Medicine Endocrinology, Diabetes & Metabolism | DX: E04.2 Nontoxic multinodular goiter (principal) ==